=== PATIENT | female | born 1970 | race Caucasian/White ===

== ENCOUNTER 2017-09-04 11:01 | Emergency (ER) | payer MEDICAID ==
[~2017-09-04] VITALS: Ht 149.9 cm; Wt 91.2 kg
[2017-09-04 11:05] VITALS: Ht 149.9 cm; Wt 91.2 kg
[2017-09-04 11:49] VITALS: BP 127/74
== END 2017-09-04 11:59 | disposition home or self-care (01) ==
LOC: ED 11:01
DX: S46.912A Strain of unspecified muscle, fascia and tendon at shoulder and upper arm level, left arm, initial encounter (principal); X50.1XXA Overexertion from prolonged static or awkward postures, initial encounter; Y93.89 Activity, other specified; Y92.89 Other specified places as the place of occurrence of the external cause; Y99.8 Other external cause status